=== PATIENT | female | born 1980 | race Caucasian/White ===

== ENCOUNTER 2018-08-27 19:31 | Emergency (ER) | payer OTHER ==
[~2018-08-27] VITALS: Ht 170.2 cm; Wt 86.6 kg
[2018-08-27 19:38] VITALS: Ht 170.2 cm; Wt 86.6 kg
[2018-08-27 20:32] VITALS: BP 135/69
[2018-08-27 20:43] LABS: microscopic required? NO
[2018-08-27 20:49] LABS: UA SPECIFIC GRAVITY >=1.030 (1.005-1.035); urine erythrocyte NEGATIVE (NEGATIVE)
== END 2018-08-27 20:32 | disposition home or self-care (01) ==
LOC: ED 19:31
PROVIDERS: Emergency Medicine
DX: N76.0 Acute vaginitis (principal); M79.7 Fibromyalgia; F41.9 Anxiety disorder, unspecified
CPT/HCPCS: 87491; 87591

== ENCOUNTER 2018-09-12 13:03 | Emergency (ER) | payer OTHER ==
[~2018-09-12] VITALS: Ht 157.5 cm; Wt 82.6 kg
[2018-09-12 13:17] VITALS: BP 129/90; Ht 157.5 cm; Wt 82.6 kg
== END 2018-09-12 14:45 | disposition left against medical advice (07) ==
LOC: ED 13:03
DX: Z53.21 Procedure and treatment not carried out due to patient leaving prior to being seen by health care provider (principal)

== ENCOUNTER 2018-09-14 20:03 | Emergency (ER) | payer OTHER ==
[~2018-09-14] VITALS: Ht 170.2 cm; Wt 81.2 kg
[2018-09-14 20:14] VITALS: Ht 170.2 cm; Wt 81.2 kg
[2018-09-14 22:35] VITALS: BP 135/93
== END 2018-09-14 22:35 | disposition home or self-care (01) ==
LOC: ED 20:03
DX: T14.8XXA Other injury of unspecified body region, initial encounter (principal); F41.9 Anxiety disorder, unspecified; M79.7 Fibromyalgia; Y92.89 Other specified places as the place of occurrence of the external cause

== ENCOUNTER 2019-08-28 19:38 | Emergency (ER) | payer OTHER ==
[~2019-08-28] VITALS: Ht 170.2 cm; Wt 97.1 kg
[2019-08-28 19:47] VITALS: Ht 170.2 cm; Wt 97.1 kg
[2019-08-28 21:15] LABS: BASOPHIL % 0.5 % (0-2); PLATELET COUNT 290 x10^3mcL (130-400); RED CELL DISTRIBUTION WIDTH 13.5 % (11.5-14.5)
[2019-08-28 21:19] LABS: CALCIUM 8.8 mg/dL (8.5-10.1); CHLORIDE SERUM 106 mmol/L (98-107); CREATININE SERUM 0.8 mg/dL (0.6-1.0); GFR1 > 60 mL/min; GLUCOSE SERUM 106 mg/dL (74-106); POTASSIUM SERUM 3.7 mmol/L (3.5-5.1); SODIUM SERUM 140 mmol/L (136-145)
[2019-08-28 21:23] LABS: ALBUMIN 3.5 g/dL (3.4-5.0); ALKALINE PHOSPHATASE 64 U/L (46-116); ALT/SGPT 40 U/L (14-59); AST/SGOT 29 U/L (15-37); BILIRUBIN TOTAL 0.1 mg/dL (0.20-1.00); TOTAL PROTEIN, SERUM 7.4 g/dL (6.4-8.2)
[2019-08-28 22:27] VITALS: BP 120/74
== END 2019-08-28 22:27 | disposition home or self-care (01) ==
LOC: ED 19:38
PROVIDERS: Emergency Medicine
DX: R07.89 Other chest pain (principal); F41.9 Anxiety disorder, unspecified; M79.7 Fibromyalgia
CPT/HCPCS: 36415; 85378; J1885; Q0092